=== PATIENT | female | born 1935 | race Asian ===

== ENCOUNTER → 2017-04-11 | Emergency (ER) | payer MEDICARE, MEDICAID ==
[~2017-04-11] VITALS: Ht 165.1 cm; Wt 59.0 kg
[~2017-04-11] MED LIST: ETOMIDATE 2 MG/ML VIAL IV ONE; IV NS 0.9% 1,000 ML BAG IV ONE; LEVETIRACETAM (500MG) 1,000 MG in IV NS 0.9% 100 ML IV SCH; LEVETIRACETAM (500MG) 500 MG/5 ML VIAL IV ONE; LEVOFLOXACIN 750 MG /D5W 150ML 150 ML IV ONE; MANNITOL 12.5 GM/50 ML VIAL IV ONE; MANNITOL IV ONE; MORPHINE SULFATE INJ 2 MG/ML DISP.SYRIN IV ONE; MORPHINE SULFATE INJ 4 MG/ML DISP.SYRIN ONE; ONDANSETRON HCL/PF 4 MG/2 ML VIAL IV ONE; ONDANSETRON HCL/PF 4 MG/2 ML VIAL ONE; PIPERACILLIN /TAZOBACTAM 3.375 G VIAL IV ONE; PIPERACILLIN /TAZOBACTAM 3.375 G in IV D5W 50 ML IV ONE; POTASSIUM CHLORIDE 20 MEQ POWDER PACKET ONE; POTASSIUM CHLORIDE 20 MEQ TAB.PRT.SR PO ONE; POTASSIUM CL. PREMIX PERIPHER. 50 ML IV SCH; PROPOFOL 100 ML IV PRN; PROPOFOL 100 ML ONE; ROCURONIUM BROMIDE 100 MG/10 ML VIAL IV ONE; ROCURONIUM BROMIDE 50 MG/5 ML IV ONE; VANCOMYCIN 1 GM VIAL ONE; VANCOMYCIN 1 GM in IV D5W 250 ML IV ONE
--- NOTE | 2017-04-11 21:30 | NUR ---
BBRA FROM HOME; "DROWSIE, GENERALIZED WEAKNESS X 1 DAY", NAD NOTED, VSS, RESP EVEN AND UNLABORED. PT PUT ON MONITOR AND HOSPITAL MD HECTOR AT FOR EVAL
--- NOTE | 2017-04-11 22:52 | NUR ---
SPOKE WITH JOSE AT [facility] FOR HIGHER LEVEL OF CARE NEUROSURGERY TRANSFER. WAITING FOR CALL BACK.
--- NOTE | 2017-04-11 22:55 | NUR ---
REPORT FROM [facility].
--- NOTE | 2017-04-11 23:00 | NUR ---
DR NELSON AT BEDSIDE FOR INTUBATION. RT AT BEDSIDE.
--- NOTE | 2017-04-11 23:00 | NUR ---
PT REC'D ON NRB 15LPM. PT ALTERED AND RESP DISTRESS NOTED. MOTOR POWER CONNECTOR CUFF PRESSURE NOTED. PT INTUBATED WITH ETT SZ 7, 22 CM AT THE LIP PER DR NELSON. PT PLACED ON NOTED SETTINGS PER DR NELSON. VENT PLUGGED INTO RED OUTLET, ALARMS ARE SET AND AUDIBLE, AMBU BAG BEDSIDE. WILL CONTINUE TO MONITOR. Addendum: 04/11/17 at 1908 by INDU GRANT RT Amended: Links added.
--- NOTE | 2017-04-11 23:05 | NUR ---
JOSE AT [facility] TRANSFER INFORMED THAT [facility] IS UNABLE TO ACCEPT PATIENT THEY ARE AT [place]. PATIENT MAY POSSIBLY BE ACCEPTED AT [facility].
--- NOTE | 2017-04-11 23:08 | NUR ---
XRAY AT BEDSIDE TO CHECK ET PLACEMENT.
--- NOTE | 2017-04-11 23:12 | NUR ---
CALLED RAUL AT [facility] TRANSFER LINE. WILL FAX FACE SHEET AND IMAGING TO [phone].
--- NOTE | 2017-04-11 23:18 | NUR ---
DR JUDITH PEÑA NEUROSURGEON FROM [facility] CALLED. TRANSFERRED CALL TO DR NELSON.
--- NOTE | 2017-04-11 23:20 | NUR ---
FAXED FACE SHEET AND IMAGING TO RAUL AT [facility]
--- NOTE | 2017-04-11 23:30 | NUR ---
16FR F/C INSERTED USING BAR PORTER, 300ML CLEAR URINE OUTPUT.
[2017-04-11 23:32] LABS: HEMATOCRIT 35 % (33-45); HEMOGLOBIN 12.2 g/dL (11.5-14.8); MEAN CORPUSCULAR HEMOGLOBIN 30 PG (26.0-33.0); MEAN CORPUSCULAR HGB CONC 35 g/dl (31.0-36.0); MEAN CORPUSCULAR VOLUME 87 fL (82-100); PLATELET COUNT (AUTO) 99 /CMM (150-450); RDW COEFFICIENT OF VARIATION 12.8 (11.5-15.0); RED BLOOD CELL COUNT(AUTO) 4.05 MIL/uL (4.0-5.2); WHITE BLOOD COUNT (AUTO) 7.1 K/uL (4.3-11.0)
[2017-04-11 23:42] VITALS: BP 118/60
--- NOTE | 2017-04-11 23:45 | NUR ---
OG TUBE INSERTED PER MD ORDERS.
[2017-04-11 23:49] LABS: CALCIUM, SERUM 8.3 mg/dL (8.5-10.1); CARBON DIOXIDE 24 mmol/L (21-32); CHLORIDE 110 mmol/L (98-107); CREATININE 0.7 mg/dL (0.6-1.3); GLUCOSE 138 mg/dL (74-106); POTASSIUM 3.1 mmol/L (3.5-5.1); SODIUM SERUM 145 mmol/L (136-145); UREA NITROGEN, BLOOD 13 mg/dL (7-18)
[2017-04-11 23:50] LABS: SERUM AMMONIA 18 umol/L (11-32)
[2017-04-11 23:52] LABS: INR 1.02 (0.87-1.13); PROTHROMBIN TIME 10.6 SECS (9.5-12.7)
[2017-04-11 23:55] LABS: ACETAMINOPHEN 13 ug/ml (10-30); ALANINE AMINOTRANSFERASE 24 U/L (12-78); ALBUMIN 3.3 g/dL (3.4-5.0); ALCOHOL, BLOOD < 3 mg/dL (0-0); ALKALINE PHOSPHATASE 49 U/L (46-116); ASPARTATE AMINOTRANSFERASE 24 U/L (15-37); BILIRUBIN,DIRECT 0.2 mg/dL (0.0-0.2); BILIRUBIN,TOTAL 0.9 mg/dL (0.2-1.0); TOTAL PROTEIN, SERUM 6.7 g/dL (6.4-8.2)
[2017-04-11 23:58] LABS: SALICYLATE < 0.2 mg/dL (2.8-20.0)
--- NOTE | 2017-04-11 23:58 | NUR ---
RESPIRATORY RATE CHANGED TO 16BPM PER DR NELSON Addendum: 04/12/17 at 0148 by INDU GRANT RT Amended: Links added.
[2017-04-12 00:03] LABS: ABG BASE EXCESS -4.2 mmol/L; ABG OXYGEN SATURATION 98.9 % (92.0-98.5); ABG PCO2 28.6 mmHg (35.0-45.0); ABG PH 7.436 (7.350-7.450); ABG PO2 247.4 mmHg (75.0-100.0); AaDO2 76.9 mmHg; COHb 0.3 % (0.5-1.5); MetHb 0.7 % (0.0-1.5); O2Hb 97.9 % (94.0-97.0); SITE, ABG Right Radial; VENT MODE, BG AC 18 400 50% +5
[2017-04-12 00:05] LABS: TROPONIN I < 0.017 ng/mL (0.00-0.056)
[2017-04-12 00:07] LABS: LYMPHOCYTES % (MANUAL) 19 % (16-48); MONOCYTES % (MANUAL) 10 % (0-11.0); NEUTROPHILS % (MANUAL) 71 (42-76)
[2017-04-12 00:10] LABS: APPEARANCE,URINE CLEAR (CLEAR); BILIRUBIN,URINE NEGATIVE (NEGATIVE); BLOOD, URINE 2+ Ery/uL (NEGATIVE); COLOR,URINE YELLOW (YELLOW); KETONES,URINE NEGATIVE (NEGATIVE); LEUKOCYTE ESTERASE ,URINE NEGATIVE (NEGATIVE); NITRITE, URINE NEGATIVE (NEGATIVE); PH,URINE 6.5 (5.0-8.0); PROTEIN,URINE NEGATIVE (NEGATIVE); UGLUCOSE NEGATIVE (NEGATIVE); UROBILINOGEN,URINE 0.2 EU/dL (0.2)
[2017-04-12 00:11] LABS: THYROID STIMULATING HORMONE 2.408 uIU/mL (0.358-3.74)
--- NOTE | 2017-04-12 00:15 | NUR ---
DR NELSON AT BEDSIDE FOR CL PLACEMENT.
[2017-04-12 00:24] LABS: BACTERIA,URINE Few /HPF (None Seen); SQUAMOUS EPITHELIAL CELL,UR Moderate /HPF (None Seen); WBC,URINE 0-2 /HPF (0-3)
--- NOTE | 2017-04-12 00:35 | NUR ---
PROPOFOL TITRATED TO 20MCG/HR. PT B/P 213/109 HR 85. PER MD ORDERS.
--- NOTE | 2017-04-12 00:45 | NUR ---
Moni FEM CL PLACED BY MD. GRULLON.
--- NOTE | 2017-04-12 00:49 | NUR ---
CALLED [facility] FOR UPDATE ON TRANSFER. STILL WAITING ON ICU BED.
--- NOTE | 2017-04-12 01:15 | NUR ---
MD AT BEDSIDE SPEAKING WITH PT SON. PT VSS/NAD NOTED. RN TO CONTINUE MONITORING PT PROVIDING SAFETY AND COMFORT MEASURES.
[2017-04-12 01:45] VITALS: BP 98/50
--- NOTE | 2017-04-12 01:45 | NUR ---
PT ACCPETED TO [facility]. ROOM [facility]6-1. # FOR REPORT [phone], OPTION 1, EXT [phone]
--- NOTE | 2017-04-12 01:50 | NUR ---
NO CHANGES, PT REMAINS SEDATED. VSS/NAD NOTED. SON AT THE BEDSIDE.
--- NOTE | 2017-04-12 02:52 | NUR ---
PT REMAINS SEDATED, NO CHANGES. VSS/NAD NOTED. RN TO CONTINUE TO MONITOR AND PROVIDE SAFETY/COMFORT MEASURES.
--- NOTE | 2017-04-12 03:44 | NUR ---
REPORT GIVEN TO ROVERTO COLLADO A IN ICU AT [facility].
[2017-04-12 03:46] VITALS: BP 102/64
--- NOTE | 2017-04-12 04:14 | NUR ---
REPORT GIVEN TO ED, RN WITH [facility] FOR TRANSPORT.
== END | disposition short-term general hospital (02) ==
LOC: ER 21:26
DX: A41.9 Sepsis, unspecified organism (principal); R65.20 Severe sepsis without septic shock; J96.00 Acute respiratory failure, unspecified whether with hypoxia or hypercapnia; S06.5X9D Traumatic subdural hemorrhage with loss of consciousness of unspecified duration, subsequent encounter; J18.9 Pneumonia, unspecified organism; E87.6 Hypokalemia; I10 Essential (primary) hypertension; M19.90 Unspecified osteoarthritis, unspecified site; W19.XXXD Unspecified fall, subsequent encounter
CPT/HCPCS: 31500; 36415; 36556; 36600 ×2; 51702; 70450; 72125; 80048; 80076; 80305; 80329; 81001; 82140; 82803; 82962; 83605; 84443; 84484; 85025; 85730; 87040 ×2; 87081; 87086; 93005; 96361; 96365; 96367; 96368; 96375; 99291; 99292; A6403; C1751; G0480 ×2; J2150; J3490 ×2; J7030 ×2; J7040; 81000-TC; J1953; J1956; J2270; J2405; J2543; J3370; J7060